=== PATIENT | male | born 1955 | race Caucasian/White ===

== ENCOUNTER 2018-07-05 10:55 | Emergency (ER) | payer BC ==
[~2018-07-05] VITALS: Ht 180.3 cm; Wt 99.8 kg
[2018-07-05 11:05] VITALS: BP 168/86
[2018-07-05] MEDS ORDERED: SULF1TAB24 PO (12:03)
--- NOTE | 2018-07-05 12:04 | PHYS DOC ---
Past Medical History Past Medical History: High Cholesterol, Hypertension Past Surgical History: Cholecystectomy, Other Additional Past Surgical Histo: right ear Alcohol Use: Heavy Drug Use: None Adult General Chief Complaint Chief Complaint: INSECT BITE HPI HPI Patient is a 62 year old male with history of hypertension, high cholesterol, who presents to the ED today complaining over insect bite to the left hand that he noted 3 days ago, patient states yesterday he was seen at urgent care and was started on cephalexin, he states the area is not improving. Denies any fever. He also states he had another insect bite on the abdomen. Review of Systems Review of Systems Constitutional: Denies fever or chills [] : Denies dysuria or hematuria [] Musculoskeletal: Denies back pain or joint pain [] Integument: Reports insect bite to the left hand Neurologic: Denies headache, focal weakness or sensory changes [] All other systems were reviewed and found to be within normal limits, except as documented in this note. Allergies Allergies Allergies Coded Allergies Type Severity Reaction Last Updated Verified No Known Drug Allergies 07/05/18 No Physical Exam Physical Exam Constitutional: Well developed, well nourished, no acute distress, non-toxic appearance. [] Abdomen: Bowel sounds normal, soft, no tenderness, no masses, no pulsatile masses. [] Skin: Left lateral hand with an area of erythema and induration approximately 2 x 2 centimeters. The area is fluctuant. The area is warm tender to touch. I was able to express pus from the area successfully. The area was cleaned and covered with nonstick dressing. Neurovascular exam is intact to the hand. There is trace erythema around the abdomen it appears superficial. Back: No tenderness, no CVA tenderness. [] Extremities: No tenderness, no cyanosis, no clubbing, ROM intact, no edema. [] Neurologic: Alert and oriented X 3, normal motor function, normal sensory function, no focal deficits noted. [] Psychologic: Affect normal, judgement normal, mood normal. [] Current Patient Data Vital Signs Vital Signs Date Time Temp Pulse Resp B/P (MAP) Pulse Ox O2 Delivery O2 Flow Rate FiO2 07/05/18 11:05 97.9 74 17 168/86 (113) 98 Room Air 97.9 EKG EKG [] Radiology/Procedures Radiology/Procedures Indication: abscess left hand Procedure: The patient was positioned appropriately. Local anesthesia was not applicable. Mild amount of bloody yellow material was expressed from the wound. The drainage cavity was irrigated and covered with sterile gauze. The patients tetanus status updated as needed. The patient tolerated the procedure well. Complications: none.[] Course & Med Decision Making Course & Med Decision Making Pertinent Labs and Imaging studies reviewed. (See chart for details) This is a 62-year-old male patient who presents to the ED today with with what he believes is an insect bite to the left hand. The area had cellulitis and an abscess which I drained in the ED. He also has some erythema around the abdomen that he believes is from another insect bite. He is currently on cephalexin. I added the Bactrim. Tetanus up-to-date. Recommended following up with the PCP in 1-2 weeks. Dragon Disclaimer Dragon Disclaimer This electronic medical record was generated, in whole or in part, using a voice recognition dictation system. Departure Departure Impression: Primary Impression: Cellulitis, abdominal wall Additional Impression: Cellulitis and abscess of hand Disposition: 01 HOME, SELF-CARE Condition: STABLE Referrals: OZIEL WOODS MD (PCP) follow up in 1 week Patient Instructions: Abscess, Cellulitis, [id number] Additional Instructions: You were evaluated in the emergency room for cellulitis and abscess to the left hand as well as cellulitis to abdomen. Continue taking cephalexin/Keflex, take the prescribed Bactrim until completed. Follow-up with your own doctor in 1-2 weeks. Scripts Sulfamethoxazole/Trimethoprim (BACTRIM DS TABLET) 1 Each Tablet 1 TAB PO BID, #20 TAB Prov: RAUL MADRID APRN 07/05/18 Problem Qualifiers RAUL MADRID APRN Jul 05, 2018 12:04
== END 2018-07-05 12:10 | disposition home or self-care (01) ==
LOC: ER 10:55
DX: L02.512 Cutaneous abscess of left hand (principal); L02.211 Cutaneous abscess of abdominal wall; I10 Essential (primary) hypertension; E78.00 Pure hypercholesterolemia, unspecified; F10.20 Alcohol dependence, uncomplicated; W57.XXXA Bitten or stung by nonvenomous insect and other nonvenomous arthropods, initial encounter; Y93.89 Activity, other specified; Y92.89 Other specified places as the place of occurrence of the external cause; Y99.8 Other external cause status; Y90.9 Presence of alcohol in blood, level not specified; Z90.49 Acquired absence of other specified parts of digestive tract
CPT/HCPCS: 10060; 99283